=== PATIENT | female | born 1990 ===

== ENCOUNTER → 2022-12-18 | Outpatient (REF) | payer OTHER | LOC: M LAB REF 17:24 | PROVIDERS: ATTEND Nurse Practitioner Family | DX: J02.9 Acute pharyngitis, unspecified (principal) ==

== ENCOUNTER → 2025-07-27 | Outpatient (REF) | payer OTHER ==
[2025-07-27 17:57] LABS: Trichomonas vaginalis (AMP) NOT DETECTED (NEGATIVE)
[2025-07-27 18:21] LABS: GC DNA AMPLIFICATION NEGATIVE (NEGATIVE)
== END ==
LOC: M LAB REF 16:19
PROVIDERS: ATTEND Nurse Practitioner Family
DX: N89.8 Other specified noninflammatory disorders of vagina (principal)